=== PATIENT | male | born 1990 | race Hispanic/Latino ===

== ENCOUNTER 2020-12-25 15:52 | Emergency (ER) | payer MEDICAID, OTHER ==
[2020-12-25] MEDS ORDERED: KETOROLAC TROMETHAMINE 60 MG/2 ML VIAL ONE (16:14)
[2020-12-25] MEDS ORDERED: CYCLOBENZAPRINE HCL 10 MG TABLET ONE (16:14)
== END 2020-12-25 17:28 | disposition home or self-care (01) ==
LOC: EDH 15:52
DX: S16.1XXA Strain of muscle, fascia and tendon at neck level, initial encounter (principal); S39.012A Strain of muscle, fascia and tendon of lower back, initial encounter; S29.012A Strain of muscle and tendon of back wall of thorax, initial encounter; S40.012A Contusion of left shoulder, initial encounter; S20.212A Contusion of left front wall of thorax, initial encounter; M25.522 Pain in left elbow; V49.09XA Driver injured in collision with other motor vehicles in nontraffic accident, initial encounter; Y93.89 Activity, other specified; Y92.89 Other specified places as the place of occurrence of the external cause; Y99.8 Other external cause status
CPT/HCPCS: 72040; 72072; 72100; 73030; 73070; 96372; 99284; J1885